=== PATIENT | female | born 1970 | race Caucasian/White ===

== ENCOUNTER 2017-07-07 00:23 | Emergency (ER) | payer OTHER ==
[~2017-07-07] VITALS: Ht 162.6 cm; Wt 62.7 kg
[2017-07-07 00:36] VITALS: Ht 162.6 cm; Wt 62.7 kg
--- NOTE | 2017-07-07 01:14 | ERD ---
ER Documentation Chief Complaint Chief Complaint suicidal ideation, hallucination, states " fears someone to get me" HPI 46-year-old woman with a history of psychiatric illness, possibly bipolar disorder, drug abuse presents agitated complaining of auditory and visual hallucinations, anxiety, and states she wants to kill herself. She states she ran out of her medications recently which include fluoxetine. She denies fevers or chills, no chest pain or shortness of breath, no recent trauma. ROS All systems reviewed and are negative except as per history of present illness. Medications Home Meds No Active Prescriptions or Reported Meds Allergies Allergies: Coded Allergies: No Known Allergy (Unverified , 10/31/14) PMhx/Soc Hypothyroidism, depression, other psychiatric illness including previous suicidal ideation History of Surgery: Yes (Liver biopsy) Hx Miscellaneous Medical Probl: Yes (Hep C) Hx Alcohol Use: No Hx Substance Use: No Hx Tobacco Use: No Smoking Status: Former smoker FmHx Family History: No diabetes Physical Exam Vitals Vital Signs Date Time Temp Pulse Resp B/P Pulse Ox O2 Delivery O2 Flow Rate FiO2 07/07/17 00:36 97.8 81 20 129/87 98 Physical Exam GENERAL: Well-developed, well-nourished, well-hydrated, depressed affect, afebrile HEENT: Moist mucous membranes, pink conjunctiva, no cervical spine tenderness or step-off deformities, no goiter, no jaundice or icterus, extraocular movements intact without pain. NEURO: Alert and oriented 3, cranial nerves II through XII intact bilaterally, pupils equal round reactive to light, no focal deficits or facial asymmetry, sensation intact distally Strength 5/5 in upper and lower extremities bilaterally CARDIAC: Regular rate and rhythm, no murmurs rubs or gallops LUNGS: Clear bilaterally no wheezing crackles or stridor ABDOMEN: Soft nontender, no guarding, no rigidity, no rebound, no psoas sign no obturator sign. SKIN: Warm and dry to touch, no abrasions, contusions, or hematomas, no lacerations, no ecchymosis, no target lesions, and without ulcers EXTREMITIES: No clubbing cyanosis or edema, calves are bilaterally symmetrical, no Homans sign, no popliteal cord sign. Distal pulses equal and bilateral PSYCH: Agitated, combative Results 24 hrs Current Medications Medications (Trade) Dose Ordered Sig/Blanca Route PRN Reason Start Time Stop Time Status Last Admin Dose Admin Lorazepam (Ativan) 1 mg ONCE ONCE IM 07/07/17 01:30 07/07/17 01:53 DC Lorazepam (Ativan) 1 mg STK-MED ONCE .ROUTE 07/07/17 01:49 07/07/17 01:50 DC Lorazepam (Ativan) 2 mg ONCE ONCE PO 07/07/17 02:00 07/07/17 02:01 DC 07/07/17 01:55 Procedures/MDM Security one-to-one watch was established and tele-psychiatry has been contacted. For patient's symptoms I administered lorazepam 2 mg p.o. Patient refused blood work Patient's behavioral symptoms have stabilized while in the department. Patient is medically cleared and appropriate for psychiatric evaluation and work up. No e/o neurologic, toxic, infectious, or metabolic cause. Psychiatric movie theater manager saw the patient at the bedside and recommended 5150 BHU hold involuntary. Departure Diagnosis: Primary Impression: Suicidal ideation Additional Impressions: Psychosis Psychosis type: unspecified psychosis type Qualified Code: F29 - Psychosis, unspecified psychosis type Drug abuse Condition: SURESH Motta MD Jul 07, 2017 01:14
[2017-07-07] MEDS ORDERED: LORAZEPAM 2 MG INJ IM ONE (01:30)
[2017-07-07] MEDS ORDERED: LORAZEPAM 1 MG TAB ONE (01:49)
[2017-07-07] MEDS ORDERED: LORAZEPAM 1 MG TAB PO ONE (02:00)
--- NOTE | 2017-07-07 04:07 | PSY ---
Date/Time of Note Date/Time of Note DATE: 07/07/17 TIME: 02:53 Psychiatric Subjective Eval Consent Pt consented to telemedicine: Yes Subjective Evaluation Patient location: emergency Chief Complaint: suicidal ideation, hallucination, states " fears someone to get me" Reason for consult: i am feeling suicidal sometimes History of present illness patient is a 46 yo female with PPH of bipolar do and methamphetamine abuse who came to the ER initially to get back on her medication but while in the ER she started to become agitated and said that she was feeling suicidal , she tells me that she is feeling suicidal and wants to cut herself, she has been hearing voice and feels paranoid, she states that she is feeling depressed because she is homeless, she has been feeling anxious and unable to sleep for few days, she has been using methamphetamine , she wants to be back on her medication, latuda and prozac. Past psychiatric history past suicidal attempt yes Hospitalization: yes Family History unknown Medical history Problems Medical Problems: (1) Drug abuse Status: Acute (2) Headache Status: Acute (3) Patient left without being seen Status: Acute (4) Psychosis Status: Acute (5) Suicidal ideation Status: Acute Allergies: Coded Allergies: No Known Allergy (Unverified , 10/31/14) Substance Abuse Substance abuse history: Yes (methamphetamine) Prior substance abuse treatmen: No Social History Marital status: single Level of education: hs DPA/Conservatorship: No Occupation/Assisted: no Psychiatric Objective Eval Review of Systems: Review of Systems: Not Applicable Physical Examination: Physical Examination: Applicable Sleep: Insomnia Appetite: Decreased Energy: Decreased Interest: Decreased Mental Status Examination: Appearance: Disheveled Eye Contact: Fair Psychomotor Activity: Slow Behavior: Cooperative Speech: Disorganized AFFECT: Flat Mood: Depressed Thought Content: Hallucinations Suicidal: Yes Homicidal: No On 72 hour hold: No Orientation: x3 Cognition: Alert, Drowsy Insight: Impared Judgement: Impared Attention Span: Distractible Assessment and Plan Assessment/Diagnosis [place] I: psychosis nos r/o amphetamine abuse [place] II: deferred [place] III: none [place] IV: homeless [place] V: gaf 25 Recommendation/Plan Medication Management latuda 40 m gpo bid prozac 20 mg po qd ativan 1 mg po bid Follow-up/Disposition Please admit patient on unvoluntary status due to Danger to self, In my opinion, patient currently MEETS criterion for inpatient care and CANNOT be safely treated ~at a lower level of care today as evidenced by the following risk factors: ~Current and Recent Suicidal Ideation Previous suicide attempt and~ severe self-destructive behavior Intense feelings of hopelessness and lack of future orientation. Significant recent DETERIORATION in function, behavior and thought processes ~Command hallucinations with violent content Substance ABUSE in conjunction with another psychiatric disorder Non-Compliance with Outpatient Treatment Patient has failed outpatient and requires further inpatient assessment Medication changes require observation unavailable at a lower level of care 5150 Recommendation: ISAI Gray MD Jul 07, 2017 03:03
[2017-07-07] MEDS: LORAZEPAM 1 MG TAB PO SCH ×2 (09:00→20:49)
[2017-07-07] MEDS ORDERED: FLUOXETINE 20 MG CAP PO SCH (09:00)
[2017-07-07 16:17] LABS: BASOPHILS % 0.9 % (0.0-2.0); EOSINOPHILS # 0.2 10^3/ul (0.0-0.5); EOSINOPHILS % 5.1 % (0.0-7.0); HEMATOCRIT 39.7 % (37.0-47.0); HEMOGLOBIN 13.4 g/dl (12.0-16.0); LYMPHOCYTES # 1.7 10^3/ul (0.8-2.9); LYMPHOCYTES % 38.8 % (15.0-51.0); MEAN CORPUSCULAR HEMOGLOBIN 30.9 pg (29.0-33.0); MEAN CORPUSCULAR HGB CONC 33.8 g/dl (32.0-37.0); MEAN CORPUSCULAR VOLUME 91.7 fl (82.0-101.0); MEAN PLATELET VOLUME 10.5 fl (7.4-10.4); MONOCYTE # 0.4 10^3/ul (0.3-0.9); MONOCYTES % 9.1 % (0.0-11.0); NEUTROPHIL # 2.1 10^3/ul (1.6-7.5); NEUTROPHILS % 45.9 % (39.0-77.0); PLATELET COUNT 249 10^3/UL (140-415); RED BLOOD COUNT 4.33 10^6/ul (4.20-5.40); RED CELL DISTRIBUTION WIDTH 12.9 % (11.5-14.5); WHITE BLOOD COUNT 4.5 10^3/ul (4.8-10.8)
[2017-07-07 16:35] LABS: ALANINE AMINOTRANSFERASE 53 IU/L (13-69); ALBUMIN 3.6 g/dl (3.3-4.9); ALBUMIN/GLOBULIN RATIO 1.09; ALKALINE PHOSPHATASE 67 IU/L (42-121); ANION GAP 12 (8-16); ASPARTATE AMINO TRANSFERASE 47 IU/L (15-46); BILIRUBIN,INDIRECT 0.5 mg/dl (0-1.1); BILIRUBIN,TOTAL 0.5 mg/dl (0.2-1.3); BLOOD UREA NITROGEN 15 mg/dl (7-20); CALCIUM 8.7 mg/dl (8.4-10.2); CARBON DIOXIDE 24 mmol/L (21-31); CHLORIDE 104 mmol/L (97-110); CREATININE 0.59 mg/dl (0.44-1.00); GLUCOSE 82 mg/dl (70-220); POTASSIUM 3.8 mmol/L (3.5-5.1); SODIUM 136 mmol/L (135-144); TOTAL PROTEIN 6.9 g/dl (6.1-8.1)
[2017-07-07 16:37] LABS: ACETAMINOPHEN < 10.0 ug/ml (10.0-30.0); ETHANOL < 10.0 mg/dl; SALICYLATE < 1.0 mg/dl (5.0-30.0)
[2017-07-07 17:41] LABS: ADD UMIC YES; UR ASCORBIC ACID NEGATIVE (NEGATIVE); UR BILIRUBIN (Dip) NEGATIVE (NEGATIVE); UR BLOOD (Dip) 2+ mg/dL (NEGATIVE); UR CLARITY CLEAR (CLEAR); UR COLOR YELLOW (YELLOW); UR GLUCOSE (Dip) NEGATIVE (NEGATIVE); UR KETONES (Dip) TRACE mg/dL (NEGATIVE); UR LEUKOCYTE ESTERASE (Dip) NEGATIVE Leu/ul (NEGATIVE); UR MUCUS FEW /HPF (NONE SEEN); UR NITRITE (Dip) NEGATIVE (NEGATIVE); UR RBC 4 /HPF (0-5); UR TOTAL PROTEIN (Dip) NEGATIVE (NEGATIVE); UR UROBILINOGEN (Dip) 2+ mg/dL (NEGATIVE)
[2017-07-07 17:58] LABS: BARBITURATES Negative (NEGATIVE); BENZODIAZEPINES Negative (NEGATIVE); CANNABINOIDS Negative (NEGATIVE); COCAINE Negative (NEGATIVE); OPIATES Negative (NEGATIVE)
[2017-07-07 18:30] VITALS: BP 124/90; PULSE 70; RESP 18; TEMP 97.8
== END 2017-07-07 20:57 ==
LOC: E/R 00:23
DX: R45.851 Suicidal ideations (principal); R40.2142 Coma scale, eyes open, spontaneous, at arrival to emergency department; R40.2362 Coma scale, best motor response, obeys commands, at arrival to emergency department; F29 Unspecified psychosis not due to a substance or known physiological condition; F19.10 Other psychoactive substance abuse, uncomplicated; E03.9 Hypothyroidism, unspecified; Z87.891 Personal history of nicotine dependence
CPT/HCPCS: 80053; 80306; 80307; 81001; 85025; J2060; Z7502; Z7610; 99285